=== PATIENT | male | born 1970 | race African-American/Black ===

== ENCOUNTER 2024-04-24 04:42 | Day surgery (SDC) | payer OTHER ==
[2024-04-17 16:02] VITALS: BMI 23.8
[2024-04-24 09:44] VITALS: TEMP 97.4
[2024-04-24 10:10] VITALS: RESP 20
[2024-04-24 10:13] VITALS: BP 121/74; PULSE 72
== END 2024-04-24 10:17 | disposition home or self-care (01) ==
LOC: JASU-ENDO 04:42
PROVIDERS: ATTEND Internal Medicine Gastroenterology
PROC: 0DJD8ZZ Inspection of Lower Intestinal Tract, Via Natural or Artificial Opening Endoscopic (ICD-10-PCS; principal; 2024-04-24 09:00)
DX: Z12.11 Encounter for screening for malignant neoplasm of colon (principal)